=== PATIENT | female | born 1935 | race Caucasian/White ===

== ENCOUNTER 2018-03-02 13:29 | Outpatient (RCR) | payer MEDICARE, OTHER | END 2018-03-29 | disposition home or self-care (01) | LOC: ONC 13:29 | PROVIDERS: ATTEND Radiology Radiation Oncology | DX: Z51.0 Encounter for antineoplastic radiation therapy (principal); C44.311 Basal cell carcinoma of skin of nose | CPT/HCPCS: 77290; 77300; 77334; 77336; 99204 ==

== ENCOUNTER → 2018-04-13 | Outpatient (CLI) | payer MEDICARE | LOC: EDSTATUS 03-30 12:10 → ONC 12:11 | PROVIDERS: ATTEND Radiology Radiation Oncology | DX: C44.311 Basal cell carcinoma of skin of nose (principal) | CPT/HCPCS: 99213 ==

== ENCOUNTER → 2019-04-06 | Outpatient (CLI) | payer MEDICARE, MEDICAID | LOC: ONC 12:23 | PROVIDERS: ATTEND Radiology Radiation Oncology | DX: C44.311 Basal cell carcinoma of skin of nose (principal) ==

== ENCOUNTER 2023-01-05 11:46 | Observation (INO) | payer MEDICARE, MEDICAID ==
[~2023-01-05] VITALS: Ht 157 cm; Wt 70.0 kg
[2023-01-05] VITALS (7 sets, daily range): BP systolic 127–161; BP diastolic 73–92
[2023-01-05 12:14] LABS: BILIRUBIN,URINE NEGATIVE (NEGATIVE); CLARITY,URINE CLEAR; COLOR,URINE YELLOW; GLUCOSE, URINE (UA) NEGATIVE (NEGATIVE); KETONES,URINE NEGATIVE (NEGATIVE); LEUKOCYTE ESTERASE ,URINE NEGATIVE (NEGATIVE); NITRITE,URINE NEGATIVE (NEGATIVE); PROTEIN,URINE NEGATIVE (NEGATIVE)
[2023-01-05 12:19] LABS: BACTERIA,URINE NEGATIVE /HPF; SQUAMOUS EPITHELIAL CELL,UR 0-2 /HPF
--- NOTE | 2023-01-05 12:29 | Diagnostic Imaging Report ---
PROCEDURE: CT head without contrast. TECHNIQUE: Multiple contiguous axial images were obtained through the brain without the use of intravenous contrast. Auto Exposure Controls were utilized during the CT exam to meet ALARA standards for radiation dose reduction. 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 There is decreased density in the periventricular white matter both hemispheres. There is generalized atrophy. There are no masses or hemorrhages. There is an area of low density in the left medial occipital lobe that could be an acute ischemic event. 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 Questionable nonhemorrhagic infarct left posterior cerebral artery vascular territory. Further evaluation with MRI recommended. Dictated by: Dictated on workstation # [id number]
[2023-01-05] MEDS ORDERED: NS IV 1000 ML 1,000 ML IV STA (12:30)
[2023-01-05 12:34] LABS: BASOPHILS % (AUTO) 0 % (0-10); EOSINOPHILS # (AUTO) 0.1 10^3/uL (0.0-0.3); EOSINOPHILS % (AUTO) 1 % (0-10); HEMATOCRIT 42 % (35-52); LYMPHOCYTES # (AUTO) 1.8 10^3/uL (1.0-4.0); LYMPHOCYTES % (AUTO) 27 % (12-44); MEAN CORPUSCULAR HEMOGLOBIN 28 pg (25-34); MEAN CORPUSCULAR HGB CONC 33 g/dL (32-36); MEAN CORPUSCULAR VOLUME 85 fL (80-99); MEAN PLATELET VOLUME 8.7 fL (9.0-12.2); MONOCYTES # (AUTO) 0.6 10^3/uL (0.0-1.0); MONOCYTES % (AUTO) 8 % (0-12); NEUTROPHILS # (AUTO) 4.3 10^3/uL (1.8-7.8); NEUTROPHILS % (AUTO) 63 % (42-75); PLATELET COUNT 237 10^3/uL (130-400); WHITE BLOOD COUNT 6.8 10^3/uL (4.3-11.0)
--- NOTE | 2023-01-05 12:34 | ED General ---
General Chief Complaint: Altered Mental Status Stated Complaint: AMS Nursing Triage Note: PTS LINDY REPORTS THE PTS MEMORY IN THE LAST COUPLE OF DAYS IS "NOT UP TO PAR". SHE HAS BEEN FORGETTING HOW TO DO BASIC ADL'S. Source of Information: Patient, Family (daughter) History of Present Illness Date Seen by Provider: Jan 05, 2023 Time Seen by Provider: 11:59 Initial Comments 87-year-old female presenting with her daughter to the emergency department due to having a recent change in her memory and behavior. She was acting normal for the daughter on Thursday when they were together for the day at the daughter's house. On Thursday she had not felt well when she got up so she did not go to christianity, which is unusual for her as well. She states that she just went back to bed and stayed in bed all day. Today when her daughter came to check on her she did not remember her daughter's name initially. She was having trouble trying to remember words and said that she had trouble trying to read her mail and understand it, which is also unusual for her. She denies any fall or injury. She has no weakness or numbness to her arms or legs. She states that she has not had any difficulty swallowing or breathing. She denies fever, chills, pain with urination, diarrhea, nausea, vomiting. She has a history of glaucoma and takes eyedrops for that but otherwise no prescription medications and only takes multiple supplements and vitamins. Timing/Duration: 1-2 Days Severity: Mild Associated Systoms: No Chest Pain, No Cough, No Diaphoresis, No Fever/Chills, No Headaches, No Loss of Appetite, No Malaise, No Nausea/Vomiting, No Rash, No Seizure, No Shortness of Air, No Syncope, No Weakness Allergies and Home Medications Allergies Coded Allergies: No Known Drug Allergies (Unverified , 01/05/23) Patient Home Medication List Home Medication List Reviewed: Yes Latanoprost (Xalatan) 0.005 % Drops, 1 DROP OU HS, (Reported) Entered as Reported by: FLOR PHELPS on 01/05/23 1530 Last Action: Reviewed Review of Systems Review of Systems Constitutional: No chills, No dizziness, No fever EENTM: no symptoms reported Respiratory: no symptoms reported Cardiovascular: no symptoms reported Gastrointestinal: no symptoms reported Genitourinary: no symptoms reported Musculoskeletal: no symptoms reported Skin: no symptoms reported Psychiatric/Neurological: See HPI Past Ldnkyld-Kbmwtj-Xocktf Hx Patient Social History Tobacco Use?: No Use of E-Cig and/or Vaping dev: No Substance use?: No Alcohol Use?: No Pt feels they are or have been: No Immunizations Up To Date Influenza Vaccine Up-to-Date: No; Not Current Past Medical History Surgery/Hospitalization HX: Glaucoma Physical Exam Vital Signs Vital Signs - First Documented 01/05/23 11:55 Temp 36.4 Pulse 82 Resp 16 B/P (MAP) 144/73 (96) Pulse Ox 97 O2 Delivery Room Air Capillary Refill : Less Than 3 Seconds Height, Weight, BMI Height: '" Weight: lbs. oz. kg; 28.00 BMI Method: General Appearance: No Apparent Distress, WD/WN HEENT: PERRL/EOMI, Pharynx Normal, Moist Mucous Membranes Neck: Full Range of Motion, Normal Inspection, Non Tender, Supple Respiratory: Chest Non Tender, Lungs Clear, Normal Breath Sounds, No Accessory Muscle Use, No Respiratory Distress Cardiovascular: Regular Rate, Rhythm, Normal Peripheral Pulses Gastrointestinal: Normal Bowel Sounds, No Pulsatile Mass, Non Tender, Soft Rectal: Deferred Extremity: Normal Capillary Refill, Normal Inspection, No Pedal Edema Neurologic/Psychiatric: Alert, Oriented x3, cable tender II-XII Norm as Tested Skin: Normal Color, Warm/Dry Progress/Results/Core Measures Suspected Sepsis SIRS Temperature: Pulse: 82 Respiratory Rate: 16 Laboratory Tests 01/05/23 12:29: White Blood Count 6.8 Blood Pressure 144 /73 Mean: 96 Laboratory Tests 01/05/23 12:29: Creatinine 1.19, Platelet Count 237, Total Bilirubin 0.5 Results/Orders Lab Results Laboratory Tests Test 01/05/23 11:57 01/05/23 12:29 Range/Units Urine Color YELLOW Urine Clarity CLEAR Urine pH 6.0 5-9 Urine Specific Forrest 1.010 L 1.016-1.022 Urine Protein NEGATIVE NEGATIVE Urine Glucose (UA) NEGATIVE NEGATIVE Urine Ketones NEGATIVE NEGATIVE Urine Nitrite NEGATIVE NEGATIVE Urine Bilirubin NEGATIVE NEGATIVE Urine Urobilinogen 0.2 < = 1.0 MG/DL Urine Leukocyte Esterase NEGATIVE NEGATIVE Urine RBC (Auto) NEGATIVE NEGATIVE Urine RBC NONE /HPF Urine WBC NONE /HPF Urine Squamous Epithelial Cells 0-2 /HPF Urine Crystals NONE /LPF Urine Bacteria NEGATIVE /HPF Urine Casts NONE /LPF Urine Mucus NEGATIVE /LPF Urine Culture Indicated NO White Blood Count 6.8 4.3-11.0 10^3/uL Red Blood Count 5.00 3.80-5.11 10^6/uL Hemoglobin 14.0 11.5-16.0 g/dL Hematocrit 42 35-52 % Mean Corpuscular Volume 85 80-99 fL Mean Corpuscular Hemoglobin 28 25-34 pg Mean Corpuscular Hemoglobin Concent 33 32-36 g/dL Red Cell Distribution Width 14.9 H 10.0-14.5 % Platelet Count 237 130-400 10^3/uL Mean Platelet Volume 8.7 L 9.0-12.2 fL Immature Granulocyte % (Auto) 0 % Neutrophils (%) (Auto) 63 42-75 % Lymphocytes (%) (Auto) 27 12-44 % Monocytes (%) (Auto) 8 0-12 % Eosinophils (%) (Auto) 1 0-10 % Basophils (%) (Auto) 0 0-10 % Neutrophils # (Auto) 4.3 1.8-7.8 10^3/uL Lymphocytes # (Auto) 1.8 1.0-4.0 10^3/uL Monocytes # (Auto) 0.6 0.0-1.0 10^3/uL Eosinophils # (Auto) 0.1 0.0-0.3 10^3/uL Basophils # (Auto) 0.0 0.0-0.1 10^3/uL Immature Granulocyte # (Auto) 0.0 0.0-0.1 10^3/uL Sodium Level 136 135-145 MMOL/L Potassium Level 4.5 3.6-5.0 MMOL/L Chloride Level 102 98-107 MMOL/L Carbon Dioxide Level 21 21-32 MMOL/L Anion Gap 13 5-14 MMOL/L Blood Urea Nitrogen 18 7-18 MG/DL Creatinine 1.19 0.60-1.30 MG/DL Estimat Glomerular Filtration Rate 44 BUN/Creatinine Ratio 15 Glucose Level 100 70-105 MG/DL Calcium Level 9.2 8.5-10.1 MG/DL Corrected Calcium 9.2 8.5-10.1 MG/DL Total Bilirubin 0.5 0.1-1.0 MG/DL Aspartate Amino Transf (AST/SGOT) 21 5-34 U/L Alanine Aminotransferase (ALT/SGPT) 11 0-55 U/L Alkaline Phosphatase 152 H 40-136 U/L C-Reactive Protein 0.69 H <0.50 MG/DL Total Protein 7.3 6.4-8.2 GM/DL Albumin 4.0 3.2-4.5 GM/DL My Orders Orders - HARDIK GOMEZ MD Cbc With Automated Diff (01/05/23 12:08) Comprehensive Metabolic Panel (01/05/23 12:08) Ua Culture If Indicated (01/05/23 12:08) Ed Iv/Invasive Line Start (01/05/23 12:08) Crp Fs (01/05/23 12:08) Ct Head Wo (01/05/23 12:08) Ns Iv 1000 Ml (Sodium Chloride 0.9%) (01/05/23 12:30) Wound Dressing-Ed (01/05/23 12:30) Aspirin Chewable Tablet (Baby Aspirin Ch (01/05/23 13:23) Clopidogrel Tablet (Plavix Tablet) (01/05/23 13:23) Ed Admission (Communication) (01/05/23 13:39) Vital Signs/I&O 01/05/23 01/05/23 11:55 13:53 Temp 36.4 36.4 Pulse 82 78 Resp 16 16 B/P (MAP) 144/73 (96) 138/72 Pulse Ox 97 98 O2 Delivery Room Air Room Air Capillary Refill : Less Than 3 Seconds Blood Pressure Mean: 96 Progress Note #1: Progress Note Potential diagnosis of acute CVA, UTI, electrolyte imbalance, dehydration. Obtain urinalysis as well as send for CT scan of her head to evaluate for possible hemorrhage or acute stroke. Send blood work to evaluate her electrolytes and blood count looking for abnormal test results. Administer normal saline 1 L IV fluid bolus for hydration. Her NIH stroke scale was a 1 with 1 off for some expressive aphasia. She denies any headache or pain. Progress Note #2: Time: 12:34 Progress Note Urinalysis was clear and did not show any signs of dehydration or acute infection. She had negative nitrites, leukocyte esterase, bacteria, white blood cells. Her CT scan of the head without IV contrast was read out by the radiologist as showing area of ischemia in the distribution of the left po sterior cerebral artery. There is no hemorrhage or mass. I updated the patient and daughter about the findings and recommended admission for MRI and additional risk stratification testing for her apparent acute stroke. She was agreeable with admission to [facility] for additional testing and evaluation. 1316 complete blood count was negative for acute anemia or high white blood cell count for infection. Her comprehensive metabolic panel also did not have any acute significant electrolyte abnormality to account for her symptoms. I sent a page to Dr. Ordonez about the patient for admission for MRI and risk stratification testing. 1318 I placed a page to the stroke neurologist to confirm that they did not have any other recommendations for work-up and evaluation on the patient. I spoke with MARIA TERESA Iniguez at the transfer center and he took basic information on the patient and will have the stroke neurologist call me back. 1335 I reviewed the patient's presentation and history with Dr. Ordonez, the on- call hospitalist for [facility]. I reviewed the patient's normal lab results and negative UTI findings. Her CT head had shown evidence of a left posterior cerebral artery infarct. Recommended MRI to further evaluate this. Dr. Ordonez was agreeable to the patient being admitted as an observation patient for additional testing. Once I speak with the neurologist if they want additional testing then I will let Dr. Ordonez. 1420 Dr. Bustillos stroke neurologist with neurology called and I discussed with her the patient's presentation and findings as well as her labs. She had already reviewed the CT head imaging that had been clouded to and agreed with the above plan for MRI and risk stratification testing. she recommends adding on CT angiography of head and neck. I did convey this to Dr. Ordonez. Patient did receive a dose of aspirin 81 mg and Plavix 75 mg by mouth prior to her daughter driving her to [facility] for admission. Diagnostic Imaging Diagonstic Imaging: CT Plain Films/CT/US/NM/MRI: head Comments NAME: AYESHA COBB [facility] REC#: [id number] PT STATUS: REG ER : 1935 PHYSICIAN: HARDIK GOMEZ MD ADMIT DATE: 01/05/23/ER FS Signed Date of Exam:01/05/23 CT HEAD WO PROCEDURE: CT head without contrast. TECHNIQUE: Multiple contiguous axial images were obtained through the brain without the use of intravenous contrast. Auto Exposure Controls were utilized during the CT exam to meet ALARA standards for radiation dose reduction. 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 There is decreased density in the periventricular white matter both hemispheres. There is generalized atrophy. There are no masses or hemorrhages. There is an area of low density in the left medial occipital lobe that could be an acute ischemic event. 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 Questionable nonhemorrhagic infarct left posterior cerebral artery vascular territory. Further evaluation with MRI recommended. Dictated by: Dictated on workstation # [id number] Dict: 01/05/23 1224 Trans: 01/05/237 TCB [id number] Interpreted by: MISTI ARREGUIN MD Electronically signed by: MISTI ARREGUIN MD 01/05/231226 Reviewed: Reviewed by Me Departure Communication (Admissions) Time/Spoke to Admitting Phy: 13:35 1335 I reviewed the patient's presentation and history with Dr. Ordonez, the on- call hospitalist for [facility]. I reviewed the patient's normal lab results and negative UTI findings. Her CT head had shown evidence of a left posterior cerebral artery infarct. Recommended MRI to further evaluate this. Dr. Ordonez was agreeable to the patient being admitted as an observation patient for additional testing. Once I speak with the neurologist if they want additional testing then I will let Dr. Ordonez. 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 Referrals: CITLALI MCRAE APRN (PCP) Primary Care Physician [facility] (Family) Primary Care Physician NIH Stroke Scale NIH Stroke Scale NIH : Select: Initial Level of Consciousness: 0=Alert Level of Consciousness-Questio: 0=Answers both month/age LOC Commands: 0=Performs both tasks Gaze: 0=Normal Visual Rivera: 0=No visual loss Facial Movement (Facial Paresi: 0=Normal symmetrical mnt Motor Function-Arms Right: 0=No drift Motor Function-Arms Left: 0=No drift Motor Function-Legs Right: 0=No drift Motor Function-Legs Left: 0=No drift Limb Ataxia: 0=Absent Sensory: 0=Normal:no loss Best Language: 1=Mild to moderat aphasia Dysarthria: 0=Normal Extinction & Inattention: 0=No abnormality NIH Stroke Scale Score: 1 HARDIK GOMEZ MD Jan 05, 2023 12:34
[2023-01-05 12:57] LABS: BILIRUBIN,TOTAL 0.5 MG/DL (0.1-1.0); CALCIUM 9.2 MG/DL (8.5-10.1); CREATININE SERUM 1.19 MG/DL (0.60-1.30); POTASSIUM 4.5 MMOL/L (3.6-5.0); TOTAL PROTEIN 7.3 GM/DL (6.4-8.2)
[2023-01-05] MEDS ORDERED: ASPIRIN 81 MG CHEW (CHILDREN'S ASA) PO STA (13:23)
[2023-01-05] MEDS ORDERED: CLOPIDOGREL 75 MG (PLAVIX) TABLET PO STA (13:23)
[2023-01-05] MEDS ORDERED: NS 100 ML (IVPB) BAG IV ONE (15:30)
[2023-01-05] MEDS ORDERED: IOHEXOL 350 MG/ML 100 ML (OMNIPAQUE 350) VIAL IV ONE (15:30)
[2023-01-05] MEDS ORDERED: LATA2.5D19 OU (15:30)
[2023-01-05 16:59] LABS: TRIGLYCERIDES 95 MG/DL (<150); VLDL CHOLESTEROL 19 MG/DL (5-40)
[2023-01-05 17:04] LABS: CHOLESTEROL 200 MG/DL (< 200); HDL CHOLESTEROL 55 MG/DL (40-60)
--- NOTE | 2023-01-05 17:12 | Diagnostic Imaging Report ---
CLINICAL INDICATION: Patient with acute left-sided weakness. EXAMS: 1: Head CT with and without IV contrast. Auto Exposure Controls were utilized during the CT exam to meet ALARA standards for radiation dose reduction. 2: CT angiogram of the head and neck performed with 100 cc of Omnipaque 350 IV contrast. Sagittal and coronal MIP reformations were created for better visualization of vascular anatomy. CT angiogram was post-processed using RAPID LVO detection to include quantitative measurements of cerebral blood flow and automated results notification to the stroke and/or neurointerventional team. COMPARISON: Head CT without contrast dated 01/05/2023. FINDINGS: Head CT: There is no significant change to the brain parenchyma with no interval acute intracranial process. There is no abnormal IV contrast enhancement. Arachnoid cyst involving the left middle cranial fossa is again seen. There is chronic small vessel ischemic disease again noted. The remainder of this exam shows no significant interval change compared to the prior study of comparison. 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 There is roughly 30% stenosis involving the origin of the left subclavian artery. The left subclavian artery is otherwise widely patent. The brachiocephalic artery and right subclavian artery are patent. There is mild stenosis involving the distal right CCA with roughly 30% narrowing. There is atherosclerotic disease in the distal right CCA extending into the origins of the right ECA and cervical right ICA. There is roughly 50% stenosis involving the origin of the cervical right ICA. The remainder of the cervical right ICA is patent. There is also roughly 50% narrowing involving the origin of the right ECA. The remainder of the right ECA is patent as visualized. The left common carotid artery is patent. The left ECA is patent. There is atherosclerotic disease involving the proximal cervical left ICA with roughly 30% stenosis. The cervical left ICA is patent. There is up to 50% stenosis involving the bilateral paraclinoid ICA. The bilateral petrous, cavernous, and paraclinoid ICA are otherwise patent. The bilateral ACAs and distal branches are patent. The left MCA and distal branches are patent. The right MCA and distal branches are patent. The bilateral cervical vertebral arteries are patent. The bilateral PICA and intradural vertebral arteries are patent. The basilar artery, bilateral superior cerebellar arteries, and bilateral sld inclusion teacher and distal branches are patent. There is a right VISITING HOUSEKEEPER which is patent. The dural venous sinuses are patent. There are multiple hypodense and hyperdense nodules involving the thyroid gland bilaterally. There is no other significant neck soft tissue abnormality. Suspected atelectasis involving both upper lung rubi. There are cervical spine vertebral body spurs and facet arthropathy. IMPRESSION: 1: Stable CT scan of the brain with no interval evidence of acute intracranial process. There is no abnormal IV contrast enhancement. 2: CT angiogram of the [place] and neck shows no large vessel occlusion or intravascular thrombus. There is no significant vascular stenosis, aneurysm, or vascular malformation. 3: There are multiple thyroid nodules bilaterally. Nonemergent thyroid ultrasound would better evaluate. Results of this report were discussed with Dr. Anne-Marie Ordonez via the telephone on 01/05/2023 at 1704 hours. Dictated by: Dictated on workstation # [id number]
[2023-01-05] MEDS: APIXABAN 5 MG (ELIQUIS) TABLET PO SCH (20:31)
[2023-01-06 03:27] VITALS: BP 123/77
[2023-01-06 05:43] LABS: HEMATOCRIT 38 % (35-52); HEMOGLOBIN 12.7 g/dL (11.5-16.0); MEAN CORPUSCULAR HEMOGLOBIN 28 pg (25-34); MEAN CORPUSCULAR HGB CONC 33 g/dL (32-36); MEAN CORPUSCULAR VOLUME 85 fL (80-99); MEAN PLATELET VOLUME 9.4 fL (9.0-12.2); PLATELET COUNT 200 10^3/uL (130-400); WHITE BLOOD COUNT 5.9 10^3/uL (4.3-11.0)
[2023-01-06 05:50] LABS: ALBUMIN 3.4 GM/DL (3.2-4.5); POTASSIUM 3.8 MMOL/L (3.6-5.0)
[2023-01-06 05:51] LABS: CALCIUM 9.1 MG/DL (8.5-10.1)
[2023-01-06 05:52] LABS: TOTAL PROTEIN 6.4 GM/DL (6.4-8.2)
[2023-01-06 05:54] LABS: BILIRUBIN,TOTAL 0.4 MG/DL (0.1-1.0)
[2023-01-06 05:56] LABS: CREATININE SERUM 1.33 MG/DL (0.60-1.30)
[2023-01-06 07:23] VITALS: BP 154/87
[2023-01-06] MEDS: ASPIRIN 325 MG (5 GR) TABLET PO SCH (08:20)
[2023-01-06] MEDS: APIXABAN 5 MG (ELIQUIS) TABLET PO SCH ×2 (08:20→19:52)
--- NOTE | 2023-01-06 09:33 | Occupational Therapy Eval ---
OT Evaluation-General/PLF Medical Diagnosis Admission Date Jan 05, 2023 at 14:53 Medical Diagnosis: CVA Onset Date: Jan 05, 2023 Therapy Diagnosis Therapy Diagnosis: weakness, FMC impairment Precautions Precautions/Isolations: Standard Precautions Weight Bear Status Weight Bearing Restriction: Full Weight Bearing Referral Referral Reason: Self Care, Evaluation/Treatment, Strengthening/ROM Medical History Additional Medical History 87-year-old female presenting with her daughter to the emergency department due to having a recent change in her memory and behavior. She was acting normal for the daughter on Thursday when they were together for the day at the daughter's house. On Thursday she had not felt well when she got up so she did not go to spiritism, which is unusual for her as well. She states that she just went back to bed and stayed in bed all day. Today when her daughter came to check on her she did not remember her daughter's name initially. She was having trouble trying to remember words and said that she had trouble trying to read her mail and understand it, which is also unusual for her. She denies any fall or injury. She has no weakness or numbness to her arms or legs. She states that she has not had any difficulty swallowing or breathing. She denies fever, chills, pain with urination, diarrhea, nausea, vomiting. She has a history of glaucoma and takes eyedrops for that but otherwise no prescription medications and only takes multiple supplements and vitamin Reviewed History: Yes Social History Home: Single Level Current Living Status: Alone Entry Into Home: Ramp ADL-Prior Level of Function SCALE: Activities may be completed with or without assistive devices. 0-Bqjcbcjjpm-qdxnckm completes the activity by him/herself with no assistance from a helper. 5-Set-up or Clean-up Assistance-helper sets up or cleans up; patient completes activity. [place] assists only prior to or following the activity. 4-Supervision or Touching Assistance-helper provides verbal cues and/or touching/steadying and/or contact guard assistance as patient completes activity. Assistance may be provided throughout the activity or intermittently. 3-Partial/Moderate Assistance-helper does LESS THAN HALF the effort. [place] lifts, holds or supports trunk or limbs, but provides less than half the effort. 2-Substantial/Maximal Assistance-helper does MORE THAN HALF the effort. [place] lifts or holds trunk or limbs and provides more than half the effort. 4-Opauxnqjf-uipxxk does ALL the effort. Patient does none of the effort to complete the activity. Or, the assistance of 2 or more helpers is required for the patient to complete the activity. If activity was not attempted, code reason: 7-Patient Refused. 9-Not Applicable-not attempted and the patient did not perform the activity before the current illness, exacerbation or injury. 10-Not Attempted due to Environmental Limitations-(lack of equipment, weather restraints, etc.). 88-Not Attempted due to Medical Conditions or Safety Concerns. Self Care: Independent Functional Cognition: Independent DME/Equipment: Bath Chair, Tub/Shower DME/Equipment Comments Has several assistive ambulatory devices but does not use them Drive Self: Yes OT Current Status Subjective Resting in bed following ECHO, OT assisted patient in snapping gown, patient agrees to therapy Mental Status/Objective Patient Orientation: Person, Place, Time, Situation Current Hearing Aids: Yes (right ear) Hand Dominance: Right Upper Extremity ROM WFLS slight limit to shoulders in flexion greater than 120 degrees Upper Extremity Coordination Patietn reports finger feel numb and is new sensation, Patent demonstrates impa ired FMC w/ zippers and placing hearing aid in right ear Upper Extremity Strength -4/5 grossly ADL-Treatment ADL-Current Regular underpants and pink elastic seat pant over lower body, gown on upper body Eating (QC): 88 (water on table, ST to screen/evaluate) Oral Hygiene (QC): 5 Shower/Bathe Self (QC): 7 Upper Body Dressing (QC): 4 Lower Body Dressing (QC): 4 On/Off Footwear (QC): 5 Toileting Hygiene (QC): 5 Education OT Patient Education: Modified ADL techniques, Progress toward Goal/Update tx plan, Purpose of tx/functional activities, Reviewed precautions, Rehab process, Safety issues, Transfer techniques Teaching Recipient: Patient Teaching Methods: Demonstration, Discussion Response to Teaching: Return Demonstration, Reinforcement Needed OT Financial Aids Officer Goals Skilled Nursing Goals Eating (QC): 6 Oral Hygiene (QC): 6 Toileting Hygiene (QC): 6 Shower/Bathe Self (QC): 6 Upper Body Dressing (QC): 6 Lower Body Dressing (QC): 6 On/Off Footwear (QC): 6 1=Demonstrate adherence to instructed precautions during ADL tasks. 2=Patient will verbalize/demonstrate understanding of assistive devices/modifications for ADL. 3=Patient will improve strength/tolerance for activity to enable patient to perform ADL's. OT Education/Plan Problem List/Assessment Assessment: Decreased Activ Tolerance, Impaired Coordination, Impaired Self- Care Skills, Restricted Funct UE ROM Discharge Recommendations Plan/Recommendations: Continue POC Treatment Plan/Plan of Care Patient would benefit from OT for education, treatment and training to promote independence in ADL's, mobility, safety and/or upper extremity function for ADL's. Plan of Care: ADL Retraining, Functional Mobility, Group Exercise/Act as Ind, U E Funct Exercise/Act, UE Neuromus Re-Ed/Coord Treatment Duration: Jan 09, 2023 Frequency: 3 times per week (3-5 times per week) Estimated Hrs Per Day: .25 hour per day Agreement: Yes Time Start Time: 09:40 Stop Time: 09:51 DATE: Jan 06, 2023 Total Time Billed (hr/min): 11 Billed Treatment Time EVM 11 min MELO EMERSON OT Jan 06, 2023 09:33
--- NOTE | 2023-01-06 09:56 | History & Physical ---
HPI History of Present Illness: 87 yo female came to ER due to concern about a stroke, she was on high alert due to family history. States her dad had a stroke and lived many years after that but couldn't speak. Her oldest sister had a stroke in her 90s. Another sister also had a stroke. States she is here to see if she has a stroke coming at her. She was having trouble making sense out of her mail when she was reading it. That occurred sometime after 9 am which is when she got the mail. It was time for her to call Donita, but she couldn't get mind to tell her how to call her, so she thought if she waited, she would call her and that did happen and she told her there was something wrong with her and she needed to come and get her and take her to the hospital. She hasn't tried reading yet today. She still feels like she has some alteration in her ability to think, for example, she was trying to find her hearing aid in her purse this morning and had some trouble, but did succeed. Source: patient Date seen by provider: Jan 06, 2023 Time Seen by Provider: 09:55 Attending Physician Keturah Ortiz Aprn PCP Admitting Physician: Caitlyn Ordonez MD Attending Physician: Caitlyn Ordonez MD Consult Date of Admission Jan 05, 2023 at 14:53 Home Medications Home Medications Reviewed patient Home Medication Reconciliation performed by pharmacy medication reconciliations computer operations technician and/or nursing. Patients Allergies have been reviewed. Allergies Coded Allergies: No Known Drug Allergies (Unverified , 01/05/23) FZD-Unioxt-Ojnwqg Hx Patient Social History Smoking Status: Never a Smoker Alcohol Use?: No Immunizations Up To Date Influenza Vaccine Up-to-Date: Yes; Up-to-Date Past Medical History PMHx: Denies SurgHx: Bilateral hip replacement Tonsillectomy Hysterectomy Family Medical History Significant Family History: Stroke Review of Systems ([facility]) Constitutional: No fever EENTM: no symptoms reported Respiratory: no symptoms reported Cardiovascular: no symptoms reported Gastrointestinal: no symptoms reported Psychiatric/Neurological: See HPI Reviewed Test Results Reviewed Test Results Lab Laboratory Tests Test 01/05/23 11:57 01/05/23 12:29 01/05/23 16:35 01/06/23 05:15 Range/Units Urine Color YELLOW Urine Clarity CLEAR Urine pH 6.0 5-9 Urine Specific [place] 1.010 L 1.016-1.022 Urine Protein NEGATIVE NEGATIVE Urine Glucose (UA) NEGATIVE NEGATIVE Urine Ketones NEGATIVE NEGATIVE Urine Nitrite NEGATIVE NEGATIVE Urine Bilirubin NEGATIVE NEGATIVE Urine Urobilinogen 0.2 < = 1.0 MG/DL Urine Leukocyte Esterase NEGATIVE NEGATIVE Urine RBC (Auto) NEGATIVE NEGATIVE Urine RBC NONE /HPF Urine WBC NONE /HPF Urine Squamous Epithelial Cells 0-2 /HPF Urine Crystals NONE /LPF Urine Bacteria NEGATIVE /HPF Urine Casts NONE /LPF Urine Mucus NEGATIVE /LPF Urine Culture Indicated NO White Blood Count 6.8 5.9 4.3-11.0 10^3/uL Red Blood Count 5.00 4.50 3.80-5.11 10^6/uL Hemoglobin 14.0 12.7 11.5-16.0 g/dL Hematocrit 42 38 35-52 % Mean Corpuscular Volume 85 85 80-99 fL Mean Corpuscular Hemoglobin 28 28 25-34 pg Mean Corpuscular Hemoglobin Concent 33 33 32-36 g/dL Red Cell Distribution Width 14.9 H 14.8 H 10.0-14.5 % Platelet Count 237 200 130-400 10^3/uL Mean Platelet Volume 8.7 L 9.4 9.0-12.2 fL Immature Granulocyte % (Auto) 0 % Neutrophils (%) (Auto) 63 42-75 % Lymphocytes (%) (Auto) 27 12-44 % Monocytes (%) (Auto) 8 0-12 % Eosinophils (%) (Auto) 1 0-10 % Basophils (%) (Auto) 0 0-10 % Neutrophils # (Auto) 4.3 1.8-7.8 10^3/uL Lymphocytes # (Auto) 1.8 1.0-4.0 10^3/uL Monocytes # (Auto) 0.6 0.0-1.0 10^3/uL Eosinophils # (Auto) 0.1 0.0-0.3 10^3/uL Basophils # (Auto) 0.0 0.0-0.1 10^3/uL Immature Granulocyte # (Auto) 0.0 0.0-0.1 10^3/uL Sodium Level 136 138 135-145 MMOL/L Potassium Level 4.5 3.8 3.6-5.0 MMOL/L Chloride Level 102 106 98-107 MMOL/L Carbon Dioxide Level 21 23 21-32 MMOL/L Anion Gap 13 9 5-14 MMOL/L Blood Urea Nitrogen 18 21 H 7-18 MG/DL Creatinine 1.19 1.33 H 0.60-1.30 MG/DL Estimat Glomerular Filtration Rate 44 39 BUN/Creatinine Ratio 15 16 Glucose Level 100 84 70-105 MG/DL Calcium Level 9.2 9.1 8.5-10.1 MG/DL Corrected Calcium 9.2 9.6 8.5-10.1 MG/DL Total Bilirubin 0.5 0.4 0.1-1.0 MG/DL Aspartate Amino Transf (AST/SGOT) 21 21 5-34 U/L Alanine Aminotransferase (ALT/SGPT) 11 15 0-55 U/L Alkaline Phosphatase 152 H 120 40-136 U/L C-Reactive Protein 0.69 H <0.50 MG/DL Total Protein 7.3 6.4 6.4-8.2 GM/DL Albumin 4.0 3.4 3.2-4.5 GM/DL Triglycerides Level 95 <150 MG/DL Cholesterol Level 200 < 200 MG/DL LDL Cholesterol Direct 147 H 1-129 MG/DL VLDL Cholesterol 19 5-40 MG/DL HDL Cholesterol 55 40-60 MG/DL Radiology 01/[address]: IMPRESSION: Senescent changes of brain with 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 Questionable nonhemorrhagic infarct left posterior cerebral artery vascular territory. Further evaluation with MRI recommended. 01/05 Head CTA: IMPRESSION: 1: Stable CT scan of the brain with no interval evidence of acuteintracranial process. There is no abnormal IV contrastenhancement. 2: CT angiogram of the [place] and neck shows no largevessel occlusion or intravascular thrombus. There is nosignificant vascular stenosis, aneurysm, or vascularmalformation. 3: There are multiple thyroid nodules bilaterally. Nonemergent thyroid ultrasound would better evaluate. Physical Exam-([facility]) Physical Exam Vital Signs VS - Last 72 Hours, by Label 01/05/23 01/05/23 01/05/23 01/05/23 11:55 13:53 15:10 16:07 Temp 36.4 36.4 36.5 Pulse 82 78 83 81 Resp 16 16 20 20 B/P (MAP) 144/73 (96) 138/72 127/79 147/91 (109) Pulse Ox 97 98 95 97 O2 Delivery Room Air Room Air Room Air 01/05/23 01/05/23 01/05/23 01/05/23 16:10 17:08 17:10 17:39 Pulse 81 77 65 Resp 20 18 B/P (MAP) 147/91 147/76 Pulse Ox 97 98 O2 Delivery Room Air 01/05/23 01/05/23 01/05/23 01/05/23 18:27 19:00 19:35 19:49 Temp 36.6 Pulse 72 80 81 Resp 18 18 B/P (MAP) 161/92 128/77 (94) Pulse Ox 96 97 94 O2 Delivery Room Air Room Air 01/05/23 01/05/23 01/06/23 01/06/23 20:30 23:26 01:00 03:27 Temp 36.5 36.1 Pulse 79 65 67 Resp 18 18 B/P (MAP) 127/73 (91) 123/77 (92) Pulse Ox 95 96 O2 Delivery Room Air Room Air Room Air 01/06/23 01/06/23 01/06/23 01/06/23 07:00 07:23 08:00 11:39 Temp 36.1 35.7 Pulse 57 63 75 Resp 18 18 B/P (MAP) 154/87 (109) 128/79 (95) Pulse Ox 96 93 O2 Delivery Room Air Room Air Room Air 01/06/23 01/06/23 01/06/23 01/06/23 13:00 15:55 19:00 19:14 Temp 36.4 36.0 Pulse 79 75 71 68 Resp 22 16 B/P (MAP) 135/64 (87) 96/59 (71) Pulse Ox 91 96 O2 Delivery Room Air 01/06/23 20:00 O2 Delivery Room Air Capillary Refill : Less Than 3 Seconds General Appearance: WD/WN, no apparent distress HEENT: PERRL/EOMI Respiratory: lungs clear, normal breath sounds Cardiovascular: regular rate, rhythm, no murmur Gastrointestinal: normal bowel sounds, non tender, soft Neurologic/Psychiatric: 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 CTA without large vessel occlusion. Statin, ASA, BP management. PT/OT/ST evals. (2) Expressive aphasia Status: Acute Assessment & Plan: Mild, with occasional word finding difficulty. ST. (3) Atrial fibrillation Status: Acute Assessment & Plan: Tele concerning for a fib, started anticoagulation and consulted Cardiology, appreciate recommendations. Echo pending. Rate normal. CAITLYN ORDONEZ MD Jan 06, 2023 09:56
--- NOTE | 2023-01-06 10:17 | Physical Therapy Evaluation ---
PT Evaluation-General Medical Diagnosis Admission Date Jan 05, 2023 at 14:53 Medical Diagnosis: CVA Onset Date: Jan 05, 2023 Therapy Diagnosis Therapy Diagnosis: debility Precautions Precautions/Isolations: Standard Precautions Referral Physician: José Luis Reason for Referral: Evaluation/Treatment Medical History Current History ER secondary to memory and behavior issues Reviewed History: Yes Social History Home: Single Level Current Living Status: Alone Entry Into Home: Ramp Prior Prior Level of Function SCALE: Activities may be completed with or without assistive devices. 4-Atkakrpnab-vafvyvf completes the activity by him/herself with no assistance from a helper. 5-Set-up or Clean-up Assistance-helper sets up or cleans up; patient completes activity. [place] assists only prior to or following the activity. 4-Supervision or Touching Assistance-helper provides verbal cues and/or touching/steadying and/or contact guard assistance as patient completes activity. Assistance may be provided throughout the activity or intermittently. 3-Partial/Moderate Assistance-helper does LESS THAN HALF the effort. [place] lifts, holds or supports trunk or limbs, but provides less than half the effort. 2-Substantial/Maximal Assistance-helper does MORE THAN HALF the effort. [place] lifts or holds trunk or limbs and provides more than half the effort. 1-Sabzxwscc-gjeoqk does ALL the effort. Patient does none of the effort to complete the activity. Or, the assistance of 2 or more helpers is required for the patient to complete the activity. If activity was not attempted, code reason: 7-Patient Refused. 9-Not Applicable-not attempted and the patient did not perform the activity before the current illness, exacerbation or injury. 10-Not Attempted due to Environmental Limitations-(lack of equipment, weather restraints, etc.). 88-Not Attempted due to Medical Conditions or Safety Concerns. Bed Mobility: 6 Transfers (B,C,W/C): 6 Gait: 6 Stairs: 6 Indoor Mobility (Ambulation): Independent Stairs: Independent Prior Devices Use: None PT Evaluation-Current Subjective Patient agrees to PT. Pain Numeric Pain Scale: 0-No Pain ROM/Strength ROM Lower Extremities bilateral LE WFL Strength Lower Extremities 4-/5 grossly bilateral LE all planes Integumentary/Posture Bowel Incontinence: No Bladder Incontinence: No Posture mild trunk flexed posture Neuromuscular (Tone, Coordination, Reflexes) grossly intact Sensory Vision: Functional Hearing: Hearing Aid/Aides Hand Dominance: Right Transfers Lying to Sitting/Side of Bed(Q: 6 Sit to Stand (QC): 4 Chair/Fsg-fu-Oaolr Xfer(QC): 4 Toilet Transfer (QC): 4 SBA on initial assessment Gait Mode of Locomotion: Walk Anticipated Mode of Locomotion: Walk Walk 10 feet (QC): 4 Walk 50 ft with 2 Turns(QC): 4 Walk 150 ft (QC): 4 Distance: 250' Gait Assistive Device: FWW Comments/Gait Description slightly unsteady without AD/improved with FWW Balance Sitting Static: Normal Sitting Dynamic: Normal Standing Static: Good Standing Dynamic: Good Assessment/Needs Patient will be seen short term by skilled PT to address functional strength and mobility to ensure safe return to home. Patient has FWW, 4WW and cane at home that she does not use. Rehab Potential: Fair PT [facility] Goals Claim Processor Goals PT [facility] Goals Time Frame: Jan 16, 2023 Roll Left & Right (QC): 6 Sit to Lying (QC): 6 Lying-Sitting on Side/Bed(QC): 6 Sit to Stand (QC): 6 Chair/Nbo-nz-Vwoif Xfer(QC): 6 Toilet Transfer (QC): 6 Walk 10 feet (QC): 6 Walk 50ft with 2 Turns (QC): 6 Walk 150 ft (QC): 6 PT Plan Treatment/Plan Treatment Plan: Continue Plan of Care Treatment Plan: Education, Functional Activity Suraj, Functional Strength, Gait, Safety, Therapeutic Exercise, Transfers Treatment Duration: Jan 16, 2023 Frequency: 5 times per week Estimated Hrs Per Day: .25 hour per day Time Time In: 940 Time Out: 951 DATE: Jan 06, 2023 Total Billed Treatment Time: 11 [facility] JOSSE FRAIRE PT Jan 06, 2023 10:17
[2023-01-06 11:39] VITALS: BP 128/79
--- NOTE | 2023-01-06 12:16 | ST Cognitive Linguistic Eval ---
Speech Evaluation-General Medical Diagnosis CVA Onset Date: Jan 05, 2023 Therapy Diagnosis Therapy Diagnosis: Minimal Anomia (Acute), Mild Cognitive Impairement ([place] in[place]) Precautions Precautions: Fall Precautions/Isolations: Fall Prevention, Standard Precautions Referral Referring Physician: Dr. Ordonez Reason for Referral: Evaluation/Treatment Medical History Reviewed History: Yes Social History Current Living Status: Alone Speech PLF-Current Status Prior Level of Function Per patient (and daughter), the patient lives independently at home (alone). The patient was able to complete all ADL's independently and was currently driving. The patient denied challenges or concerns with her speech, language, cognition or swallowing. The patient recently "passed" the RN Dysphagia Screening and is receiving a regular consistency diet with thin liquids. Subjective The patient was seated upright in her recliner, awake and alert, upon entrance to her room by the clinician. The patient greeted the clinician appropriately and was agreeable to participation in the skilled cognitive linguistic assessment. The patient's daughter arrives partially through the session and remains at bedside throughout completion. Language Eval: Auditory Comprehends Simple Yes/No Ques: Functional Indent/Objects Multiple Rivera: Functional Ident/Pics in Multiple Rivera: Functional Follows 1-Step Commands: Functional Follows General Conversations: Functional The patient presents with reduced hearing acuity. The patient's hard of hearing status does appear to influence her overall comprehension and repetition of in structions is necessary. Language Eval: Verbal Language Completes Spontaneous Greeting: Functional Produces Auto, Serial Info: Functional Imitates Simple Words/Phrases: Functional Word Finding: Mild Requests Basic Needs: Functional States Basic Personal Info: Functional Language Evaluation: Reading The patient (and daughter) stated the patient requires glasses to read and her glasses are not present at this time. Cognitive Patient Orientation The patient was independently oriented to self, location, month, year, and day of the week. Objective Cognitive Domain Attention: WNL Memory: Mild (Reported baseline.) Problem Solving: Functional Composite Severity Rating: Mild To note, the patient frequently closed her right eye when visiting with the clinician. The patient denied difficulty with her vision and her daughter stated "She has always done that." Objective Oral Motor/Speech Production The patient does not display dysarthria or apraxia of speech. The patient is 100% intelligible in known and unknown contexts. Impression The patient demonstrated mild anomia (acute) and a mild cognitive deficit in the area of memory (reported baseline). Skilled speech pathology would be beneficial initially to provide word finding strategies and practice. Speech Short Term Goals Short Term Goals Short Term Goals 1. The patient will display word finding strategies with 80% accuracy, independ ently. Time Frame-STG: Five Days. Speech Emulsion Operator Goals Custodial Goals 1. The patient will demonstrate improved cognitive linguistic skills for safe discharge to the least restrictive environment. Time Frame: One Week. Speech-Plan Treatment Plan Speech Therapy Treatment Plan: Continue Plan of Care Frequency: 2 times per week Estimated Hrs Per Day: .25 hour per day Rehab Potential: Fair Pt/Family Agrees to Plan: Yes Safety Risks/Education Teaching Recipient: Patient, Family Teaching Methods: Discussion Response to Teaching: Verbalize Understanding Education Topics Provided: Results, Recommendations, Plan of Care Time Speech Therapy Time In: 10:00 Speech Therapy Time Out: 10:36 DATE: Jan 06, 2023 Total Billed Time: 36 Billed Treatment Time 1, [facility] Jan 06, 2023 12:16
--- NOTE | 2023-01-06 12:35 | Diagnostic Imaging Report ---
CLINICAL INDICATION: Patient with history of left-sided weakness. Stroke. EXAM: MRI of the brain performed without IV contrast. Sequences include axial DWI, ADC map, axial T1, axial T2, axial FLAIR, coronal gradient echo, and sagittal T1. COMPARISON: CT angiogram of the head/neck dated 01/05/2023. FINDINGS: There is a rwmcq-pe-ksnkregj amount of patchy and confluent areas of diffusion restriction involving the medial left temporal lobe and left occipital lobe region. There is a small area of diffusion restriction involving the left thalamus measuring 1.2 cm in greatest dimensions. There are focal areas of diffusion restriction involving the medial right temporal lobe, right occipital lobe, and lateral posterior right temporal lobe region. There is a punctate area of diffusion restriction involving the inferior aspect of the right cerebellar hemisphere. There are subtle punctate areas of diffusion restriction involving the right thalamus and frontal lobe bashir radiata and right periventricular region. There is high T2 signal associated with the larger left temporal lobe and left occipital lobe and left thalamic infarct regions. There is no evidence of intraparenchymal hemorrhage. There is no brain herniation or midline shift. There is diffuse brain parenchymal volume loss. There are superimposed multiple focal, patchy and confluent areas of high T2 signal white matter changes involving both cerebral hemispheres and periventricular regions and superior right cerebellar hemisphere region, likely representing chronic small vessel ischemic disease and leukoaraiosis. Stable arachnoid cyst in the left middle cranial fossa region. The extracranial soft tissue, skull, and orbits are unremarkable. IMPRESSION: 1: There are areas of confluent and patchy acute infarcts involving the left temporal lobe, left occipital lobe, and left thalamic region suggesting the left FIELD ASSISTANT/posterior circulation distribution. 2: There are small punctate areas of acute infarcts involving the right temporal lobes, occipital lobe, and right thalamic and right bashir radiata periventricular regions. These infarcts involve both the right MCA and right FIELD ASSISTANT distribution and are suspected to be related to embolic process. 3: There is no evidence of brain herniation, midline shift, or intracranial hemorrhage. 4: There is diffuse chronic small vessel ischemic disease and leukoaraiosis. Dictated by: Dictated on workstation # [id number]
[2023-01-06] MEDS ORDERED: HOLD METFORMIN - RECEIVED CONTRAST 20 ML VIAL IV SCH (12:45)
[2023-01-06] MEDS ORDERED: IOHEXOL 350 MG/ML 100 ML (OMNIPAQUE 350) VIAL IV ONE (12:45)
[2023-01-06] MEDS ORDERED: NS 100 ML (IVPB) BAG IV ONE (12:45)
[2023-01-06] MEDS ORDERED: CATHETER FLUSH 10 ML SYR IV PRN (12:45)
--- NOTE | 2023-01-06 13:00 | Diagnostic Imaging Report ---
PROCEDURE: CT angiography of the chest with contrast. TECHNIQUE: Multiple contiguous axial images were obtained through the chest after uneventful bolus administration of intravenous contrast. 3D reconstructed CTA MIP acquisitions were also performed. Auto Exposure Controls were utilized during the CT exam to meet ALARA standards for radiation dose reduction. INDICATION: Clinical suspicion for aortic dissection. FINDINGS: Thoracic aorta is well opacified and showed no dissection, mural hematoma, or rupture. There are coronary artery atherosclerotic calcifications. The heart is mildly enlarged. There are incidental calcifications of the mitral annulus. Pulmonary arteries are poorly opacified owing to timing to optimize aortic evaluation given the clinical concern. No effusion. No pneumothorax. No focal pulmonary consolidation. No edema or pneumonia. No lung mass or suspicious lymph nodes. The visible upper abdomen is nonacute. Upper abdominal visceral evaluation is severely limited owing to imaging exclusively during the arterial phase. There is an irregular enhancement in the upper pole of the right kidney anteriorly where there is a suspicion for an underlying mass measuring 2.2 x 1.8 cm (image 140 series 2). This may merely reflect incidental perfusion anomaly given its size. If a true mass is present of those dimensions, it should be apparent at ultrasound. This could be performed on a nonemergent basis. There are gallstones present. No bile duct dilatation. The adrenals are unremarkable. IMPRESSION: 1. Atherosclerotic but intact nonacute and nonaneurysmal thoracic and upper abdominal aorta. 2. Findings indeterminate between perfusion anomaly versus true hyperenhancing mass in right renal upper pole, consider nonemergent sonographic correlation. 3. Cholelithiasis. 4. Severe degenerative changes to the visible spine. Dictated by: Dictated on workstation # [id number]
--- NOTE | 2023-01-06 14:52 | Consultation-Cardiology ---
HPI-Cardiology Cardiology Consultation: Date of Consultation 01/06/23 Date of Admission Attending Physician Keturah Ortiz Aprn Admitting Physician Admitting Physician: Anne-Marie Ordonez MD Attending Physician: Anne-Marie Ordonez MD Consulting Physician Nicole ERVIN MD HPI: Time Seen by a Provider: 14:48 Chief Complaint: Stroke This is a 87-year-old lady with significant family history of stroke. She presents with documented posterior circulation stroke. Found to have atrial fibrillation on telemetry. Cardiology consulted. Patient denies diabetes or any other cardiac history. No history of bleeding. Review of Systems-Cardiology Review of Systems Constitutional: As described under HPI Eyes: no symptoms reported Ears/Nose/Throat: no symptoms reported Respiratory: no symptoms reported Cardiovascular: no symptoms reported Gastrointestinal: no symptoms reported Genitourinary: no symptoms reported Musculoskeletal: no symptoms reported Skin: no symptoms reported Psychiatric/Neurological: As described under HPI, focal weakness Hematologic: no symptoms reported [id number] Hx Patient Social History Smoking Status: Never a Smoker Alcohol Use?: No Pt feels they are or have been: No Past Medical History PMH As described under Assessment. Allergies and Home Medications Allergies Coded Allergies: No Known Drug Allergies (Unverified , 01/05/23) Patient Home Medication List Home Medication List Reviewed: Yes Latanoprost (Xalatan) 0.005 % Drops, 1 DROP OU HS, (Reported) Entered as Reported by: FLOR PHELPS on 01/05/23 1530 Last Action: Reviewed Exam Vital Signs Vital Signs Date Time Temp Pulse Resp B/P (MAP) Pulse Ox O2 Delivery O2 Flow Rate FiO2 01/06/23 11:39 35.7 75 18 128/79 (95) 93 Room Air Physical Exam Constitutional: Not in distress Chest: Clear to auscultation bilaterally. CVS: Irregularly irregular rhythm. Mild systolic murmur. Neuro: Alert. No pedal edema Labs Laboratory Tests Test 01/05/23 16:35 01/06/23 05:15 Range/Units Triglycerides Level 95 <150 MG/DL Cholesterol Level 200 < 200 MG/DL LDL Cholesterol Direct 147 H 1-129 MG/DL VLDL Cholesterol 19 5-40 MG/DL HDL Cholesterol 55 40-60 MG/DL White Blood Count 5.9 4.3-11.0 10^3/uL Red Blood Count 4.50 3.80-5.11 10^6/uL Hemoglobin 12.7 11.5-16.0 g/dL Hematocrit 38 35-52 % Mean Corpuscular Volume 85 80-99 fL Mean Corpuscular Hemoglobin 28 25-34 pg Mean Corpuscular Hemoglobin Concent 33 32-36 g/dL Red Cell Distribution Width 14.8 H 10.0-14.5 % Platelet Count 200 130-400 10^3/uL Mean Platelet Volume 9.4 9.0-12.2 fL Sodium Level 138 135-145 MMOL/L Potassium Level 3.8 3.6-5.0 MMOL/L Chloride Level 106 98-107 MMOL/L Carbon Dioxide Level 23 21-32 MMOL/L Anion Gap 9 5-14 MMOL/L Blood Urea Nitrogen 21 H 7-18 MG/DL Creatinine 1.33 H 0.60-1.30 MG/DL Estimat Glomerular Filtration Rate 39 BUN/Creatinine Ratio 16 Glucose Level 84 70-105 MG/DL Calcium Level 9.1 8.5-10.1 MG/DL Corrected Calcium 9.6 8.5-10.1 MG/DL Total Bilirubin 0.4 0.1-1.0 MG/DL Aspartate Amino Transf (AST/SGOT) 21 5-34 U/L Alanine Aminotransferase (ALT/SGPT) 15 0-55 U/L Alkaline Phosphatase 120 40-136 U/L Total Protein 6.4 6.4-8.2 GM/DL Albumin 3.4 3.2-4.5 GM/DL ECG Impression ECG Initial ECG Impression: Atrial Fibrillation A/P-Cardiology Assessment/Admission Diagnosis Acute stroke, Advanced age, New onset atrial fibrillation Plan This is a 87-year-old lady with acute stroke. Telemetry shows new onset atrial fibrillation. Patient does not have any history of bleeding. Oral anticoagulation is recommended. Discussed with Dr. Ordonez. In a patient with acute stroke, rhythm control strategy is contraindicated. She will need to be on full oral anticoagulation for at least 6 weeks before rhythm control strategy can be considered. I discussed at length with the patient and daughter and recommended that she follow-up with ice house supervisor here in town. I have recommended either Dr. Weir or Dr. Trevizo. On echocardiogram normal LV function with calcified aortic valve with no significant aortic stenosis. Significantly calcified mitral valve with likely calcified chordae. Difficult to assess the aortic arch but possibility of a dissection flap. We got a stat CT angio of the chest which ruled out aortic dissection or aneurysm Nicole ERVIN MD Jan 06, 2023 14:52
[2023-01-06 15:55] VITALS: BP 135/64
[2023-01-06 19:14] VITALS: BP 96/59
[2023-01-06 23:17] VITALS: BP 122/84
[2023-01-07 03:42] VITALS: BP 131/81
[2023-01-07 07:37] VITALS: BP 150/81
[2023-01-07] MEDS: ASPIRIN 325 MG (5 GR) TABLET PO SCH (08:28)
[2023-01-07] MEDS: APIXABAN 5 MG (ELIQUIS) TABLET PO SCH (08:28)
--- NOTE | 2023-01-07 10:19 | Occupational Ther Daily Note ---
OT Current Status-Daily Note Subjective Up in bed w/ breakfast, OT recommends sitting in chair, patient declined and family in room, agrees to OT instructing in ther ex for UES. Mental Status/Objective Patient Orientation: Person, Place, Time, Situation ADL-Treatment Therapy Code Descriptions/Definitions Functional [place] Measure: 0=Not Assessed/NA 4=Minimal Assistance 1=Total Assistance 5=Supervision or Setup 2=Maximal Assistance 6=Modified [place] 3=Moderate Assistance 7=Complete IndependenceSCALE: Activities may be completed with or without assistive devices. 8-Qvtwlpbrjq-bmapdco completes the activity by him/herself with no assistance from a helper. 5-Set-up or Clean-up Assistance-helper sets up or cleans up; patient completes activity. [place] assists only prior to or following the activity. 4-Supervision or Touching Assistance-helper provides verbal cues and/or touching/steadying and/or contact guard assistance as patient completes activ ity. Assistance may be provided throughout the activity or intermittently. 3-Partial/Moderate Assistance-helper does LESS THAN HALF the effort. [place] lifts, holds or supports trunk or limbs, but provides less than half the effort. 2-Substantial/Maximal Assistance-helper does MORE THAN HALF the effort. [place] lifts or holds trunk or limbs and provides more than half the effort. 1-Daikqwebn-nabihx does ALL the effort. Patient does none of the effort to complete the activity. Or, the assistance of 2 or more helpers is required for the patient to complete the activity. If activity was not attempted, code reason: 7-Patient Refused. 9-Not Applicable-not attempted and the patient did not perform the activity before the current illness, exacerbation or injury. 10-Not Attempted due to Environmental Limitations-(lack of equipment, weather restraints, etc.). 88-Not Attempted due to Medical Conditions or Safety Concerns. Eating (QC): 6 Oral Hygiene (QC): 5 On/Off Footwear: 5 Other Treatment Yellow therapy band for shoulder flexion, abduction and elbow flexion/extension 10x3 with instruction to isolate and alternate UEs d/t chronically limited ROM Education OT Patient Education: Correct positioning, Modified ADL techniques, Progress toward Goal/Update tx plan, Purpose of tx/functional activities, Reviewed precautions, Rehab process Teaching Recipient: Patient Teaching Methods: Demonstration, Discussion Response to Teaching: Verbalize Understanding, Return Demonstration, Reinforcement Needed OT Prospect Manager Goals Prospect Manager Goals Eating (QC): 6 Oral Hygiene (QC): 6 Toileting Hygiene (QC): 6 Shower/Bathe Self (QC): 6 Upper Body Dressing (QC): 6 Lower Body Dressing (QC): 6 On/Off Footwear (QC): 6 1=Demonstrate adherence to instructed precautions during ADL tasks. 2=Patient will verbalize/demonstrate understanding of assistive devices/modifications for ADL. 3=Patient will improve strength/tolerance for activity to enable patient to perform ADL's. OT Education/Plan Problem List/Assessment Assessment: No Skilled OT Needs ID'd, Decreased Activ Tolerance, Impaired Self- Care Skills, Restricted Funct UE ROM Discharge Recommendations Plan/Recommendations: Continue POC Treatment Plan/Plan of Care Treatment,Training & Education: Yes Patient would benefit from OT for education, treatment and training to promote independence in ADL's, mobility, safety and/or upper extremity function for ADL's. Plan of Care: ADL Retraining, Functional Mobility, Group Exercise/Act as Ind, UE Funct Exercise/Act, UE Neuromus Re-Ed/Coord Treatment Duration: Jan 09, 2023 Frequency: 3 times per week (3-5 times per week) Estimated Hrs Per Day: .25 hour per day Agreement: Yes Rehab Potential: Fair Time Start Time: 09:05 Stop Time: 09:20 DATE: Jan 07, 2023 Total Time Billed (hr/min): 15 Billed Treatment Time EX 15 min MELO EMERSON OT Jan 07, 2023 10:19
[2023-01-07 11:47] VITALS: BP 140/75
--- NOTE | 2023-01-07 12:48 | Speech Therapy Daily Note ---
Speech Daily Progress Note Subjective Date Seen by Provider: Jan 07, 2023 Time Seen by Provider: 10:15 The patient was transferring from the restroom to the edge of bed with the assistance of her daughter upon entrance to her room by the clinician. The patient greeted the clinician appropriately and was agreeable to participation in the skilled language treatment session. Objective The clinician introduced word-finding strategies to the patient and provided demonstration of the strategies through conversation. A handout containing the strategies were left with the patient. The patient denied any difficulty or concerns for the clinician and reported improvement in her language throughout the prior evening. ST will continue to provided and follow up on word-finding strategies throughout the subsequent treatment session. Assessment Assessment Current Status: Good Progress Treatment Plan Continue Plan of Care Speech Short Term Goals Short Term Goals Short Term Goals 1. The patient will display word finding strategies with 80% accuracy, independently. Time Frame-STG: Five Days. Speech Correction Goals Bioinformatics Analyst Goals 1. The patient will demonstrate improved cognitive linguistic skills for safe discharge to the least restrictive environment. Time Frame: One Week. Speech-Plan Treatment Plan Speech Therapy Treatment Plan: Continue Plan of Care Treatment Duration: Jan 09, 2023 Frequency: 2 times per week Estimated Hrs Per Day: .25 hour per day Rehab Potential: Fair Safety Risks/Education Teaching Recipient: Patient, Family Teaching Methods: Demonstration, Handout, Discussion Response to Teaching: Reinforcement Needed Education Topics Provided: Word Finding Strategies Time Speech Therapy Time In: 10:15 Speech Therapy Time Out: 10:30 DATE: Jan 07, 2023 Total Billed Time: 15 Billed Treatment Time [address] ST Jan 07, 2023 12:48
[2023-01-07] MEDS ORDERED: APIX5TAB PO (15:44)
[2023-01-07] MEDS ORDERED: ASPI-999 PO (15:44)
[2023-01-07] MEDS ORDERED: ATOR80TA76 PO (15:44)
--- NOTE | 2023-01-07 15:45 | D/C HH Face to Face Order ---
D/C Face to Face Orders Instructions for Patient Patient Instructions/FollowUp: Follow up with primary doctor within a week of discharge. Follow up with Cardiology as directed. Physician to follow Patient: [facility] Discharge Diet for Home: Cardiac Diet Patient Data-Allergies,Ht & Wt Patient Allergies: Coded Allergies: No Known Drug Allergies (Unverified , 01/05/23) Home Health Need/Face to Face Date of Face to Face: Jan 07, 2023 Clinical Findings: Other-list in note (unable to drive due to mental status) I have seen Pt [id number]: Yes Discharged To: Home Diagnosis/Conditions: Stroke Atrial fibrillation Patient is Homebound due to: CognItive deficits Homebound Status Due to the above stated illness, injury or surgical procedure (medical condition or diagnosis) and associated clinical findings, the patient is homebound because of his/her inability to leave home except with aid of a supportive device and/or person AND leaving the home requires a considerable and taxing effort or is medically contraindicated. Pt req the following assistanc: Aid of another person Home Health Nursing Orders Home Health Services Order: Nursing Services, Draw Bench Operator-Evaluate & Treat, Physical Therapy-Evaluate & Treat, Speech Language-Evaluate & Treat Home Health Infusion Therapy Line Start Date: Jan 05, 2023 Certify Stmt I certify that this patient is under my care and that I, a nurse practitioner or a physician; a clinical education assistant working with me, had a face to face encounter that - meets the physician face to face encounter requirements with this patient as dated. CAITLYN BIRMINGHAM MD Jan 07, 2023 15:45
--- NOTE | 2023-01-07 15:46 | Discharge Summary ---
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 CTA without large vessel occlusion. Statin, ASA, BP management. PT/OT/ST evals done and patient did well with all, continued to have mild word finding difficulty. (2) Expressive aphasia Status: Acute Assessment & Plan: Mild, with occasional word finding difficulty. ST. (3) Atrial fibrillation Status: Acute Assessment & Plan: Tele concerning for a fib, started anticoagulation and consulted Cardiology, appreciate recommendations. Echo with normal EF, see problem list for other findings. Rate normal. Started on Eliquis for stroke prevention. Rate remained controlled. (4) Right kidney mass Status: Acute Assessment & Plan: Needs outpatient ultrasound for possible right renal lesion seen on chest CTA done for rule out aortic dissection. (5) Mitral valve annular calcification Status: Chronic (6) Aortic valve sclerosis Status: Chronic (7) Moderate tricuspid regurgitation Status: Chronic Hospital Course Date of Admission: Jan 05, 2023 at 14:53 Admission Diagnosis : Family Physician/Provider: [facility] Date of Discharge: 01/07/23 Discharge Diagnosis: See problem list Hospital Course: See problem list Labs and Pending Lab Test: Home Meds Active Aspirin 81 Mg Tab.chew 81 Mg PO DAILY Atorvastatin Calcium 80 Mg Tablet 80 Mg PO HS Eliquis (Apixaban) 5 Mg Tablet 5 Mg PO BID Reported Xalatan (Latanoprost) 0.005 % Drops 1 Drop OU HS Assessment/Pt DC Instructions Follow up with Cardiology as directed and with primary provider within a week of discharge. Discharge Diet: Cardiac Diet Activity as Tolerated: Yes Discharge Physical Examination Allergies: Coded Allergies: No Known Drug Allergies (Unverified , 01/05/23) General Appearance: No Apparent Distress, WD/WN Respiratory: Lungs Clear, Normal Breath Sounds Cardiovascular: No Edema, Irregularly Irregular Skin: Normal Color, Warm/Dry Neurologic/Psychiatric: Alert, Normal Mood/Affect CAITLYN BIRMINGHAM MD Jan 07, 2023 15:46
--- NOTE | 2023-01-07 16:54 | Cardiology Progress Note ---
Cardiology SOAP Progress Note Subjective: No significant cardiac complaints Objective: I&O/Vital Signs 01/07/23 01/07/23 01/07/23 01/07/23 07:20 07:37 08:57 11:47 Temp 36.1 36.1 Pulse 51 75 92 Resp 18 19 B/P (MAP) 150/81 (104) 140/75 (96) Pulse Ox 96 94 O2 Delivery Room Air Room Air Room Air 01/07/23 01/07/23 12:10 16:20 Pulse 83 B/P (MAP) 01/07/23 00:00 Intake Total 830 ml Output Total 1100 ml Balance -270 ml Constitutional: AAO x 3 Respiratory: lungs clear to auscultation Cardiovascular: regular rate-rhythm Gastrointestional: soft Neurologic/Psychiatric: alert, normal mood/affect, oriented x 3 A/P: Assessment/Dx: Acute stroke, Advanced age, New onset atrial fibrillation Plan: This is a 87-year-old lady with acute stroke. Telemetry shows new onset atrial fibrillation. Patient does not have any history of bleeding. Oral anticoagulation is recommended. Patient is on Eliquis twice daily. Today her pulse seems regular. I have requested an EKG. In a patient with acute stroke, rhythm control strategy is contraindicated. She will need to be on full oral anticoagulation for at least 6 weeks before rhythm control strategy can be considered. I discussed at length with the patient and daughter and recommended that she follow-up with municipal maintenance worker here in town. I have recommended either Dr. Weir or Dr. Trevizo. On echocardiogram normal LV function with calcified aortic valve with no significant aortic stenosis. Significantly calcified mitral valve with likely calcified chordae. Difficult to assess the aortic arch but possibility of a dissection flap. We got a stat CT angio of the chest which ruled out aortic dissection or aneurysm Nicole ERVIN MD Jan 07, 2023 16:54
== END 2023-01-07 16:45 | disposition home health service (06) ==
LOC: EDUNIT# 11:46 → ER FS 11:47 → 4TH 14:53 → INTOOBSV 14:53
PROVIDERS: ADMIT Family Medicine; ATTEND Family Medicine
DX: I63.89 Other cerebral infarction (principal); R13.0 Aphagia; I48.91 Unspecified atrial fibrillation; N28.89 Other specified disorders of kidney and ureter; I34.81 Nonrheumatic mitral (valve) annulus calcification; I35.8 Other nonrheumatic aortic valve disorders; I07.1 Rheumatic tricuspid insufficiency; R41.81 Age-related cognitive decline; R47.01 Aphasia
CPT/HCPCS: 36415; 70450; 70496; 70498; 70551; 71275; 80053 ×2; 80061; 81000; 85025; 85027; 86141; 92507 ×2; 92523; 93005; 94664; 96375; 96376; 97110; 97162; 97166; 99284; C8929; G0378; 93306